=== PATIENT | female | born 1980 | race Caucasian/White ===

== ENCOUNTER 2018-01-03 10:04 | Inpatient (IN) | payer OTHER ==
[~2018-01-03] VITALS: Ht 160 cm; Wt 67.6 kg
[2018-01-03] MEDS ORDERED: BOOSTRIX (10:48)
[2018-01-03] MEDS ORDERED: HYDRALAZINE HCL50 MG PO (11:52)
[2018-01-03] MEDS ORDERED: AMLODIPINE BESYL5 MG PO (11:53)
[2018-01-03] MEDS ORDERED: LASIX20 MG PO (11:54)
[2018-01-03] MEDS ORDERED: ISOSORBIDE DINI30 MG PO (11:55)
[2018-01-03] MEDS ORDERED: PEPCID20 MG PO (11:56)
[2018-01-03] MEDS ORDERED: RENVELA0.8 GM PO (11:57)
[2018-01-03] MEDS ORDERED: CLOPIDOGREL BIS75 MG PO (11:59)
[2018-01-03] MEDS ORDERED: ATORVASTATIN CA20 MG PO (12:00)
== END 2018-01-29 19:19 | DRG 314 ==
LOC: ER 10:04 → MEDJ 14:39 → SEC-K 14:39 → MEDJ 16:17
PROVIDERS: Radiology Vascular & Interventional Radiology
PROC: B246ZZZ Ultrasonography of Right and Left Heart (ICD-10-PCS; 2018-01-04)
PROC: BT43ZZZ Ultrasonography of Bilateral Kidneys (ICD-10-PCS; 2018-01-04)
PROC: 0J2TXYZ Change Other Device in Trunk Subcutaneous Tissue and Fascia, External Approach (ICD-10-PCS; 2018-01-05)
PROC: 5A1D70Z Performance of Urinary Filtration, Intermittent, Less than 6 Hours Per Day (ICD-10-PCS; principal; 2018-01-05 17:00)
PROC: 8E0ZXY6 Isolation (ICD-10-PCS; 2018-01-14)
PROC: 0J2TXYZ Change Other Device in Trunk Subcutaneous Tissue and Fascia, External Approach (ICD-10-PCS; 2018-01-24)
PROC: BW4GZZZ Ultrasonography of Pelvic Region (ICD-10-PCS; 2018-01-24)
PROC: 0T7D8ZZ Dilation of Urethra, Via Natural or Artificial Opening Endoscopic (ICD-10-PCS; 2018-01-26)
PROC: 0T9B70Z Drainage of Bladder with Drainage Device, Via Natural or Artificial Opening (ICD-10-PCS; 2018-01-26)
DX: T80.211A Bloodstream infection due to central venous catheter, initial encounter (principal); N18.6 End stage renal disease; R78.81 Bacteremia; I13.2 Hypertensive heart and chronic kidney disease with heart failure and with stage 5 chronic kidney disease, or end stage renal disease; I69.351 Hemiplegia and hemiparesis following cerebral infarction affecting right dominant side; N39.0 Urinary tract infection, site not specified; T82.41XA Breakdown (mechanical) of vascular dialysis catheter, initial encounter; Y84.8 Other medical procedures as the cause of abnormal reaction of the patient, or of later complication, without mention of misadventure at the time of the procedure; Y92.098 Other place in other non-institutional residence as the place of occurrence of the external cause; E10.22 Type 1 diabetes mellitus with diabetic chronic kidney disease; I50.9 Heart failure, unspecified; Z99.2 Dependence on renal dialysis; J45.998 Other asthma; B96.4 Proteus (mirabilis) (morganii) as the cause of diseases classified elsewhere; B96.29 Other Escherichia coli [E. coli] as the cause of diseases classified elsewhere; B95.2 Enterococcus as the cause of diseases classified elsewhere; Z16.12 Extended spectrum beta lactamase (ESBL) resistance; D63.1 Anemia in chronic kidney disease; N35.8 Other urethral stricture; N36.5 Urethral false passage; N30.80 Other cystitis without hematuria